=== PATIENT | female | born 1950 | race African-American/Black ===

== ENCOUNTER → 2017-06-07 | Outpatient (CLI) | payer MEDICARE ==
[~2017-06-07] MED LIST: ADVAIR 2501 DISK W/D PO; AMOXICILLIN PO; LASIX PO; LORTAB 10/500 T1 TAB PO; NEXIUM PO; SINGULAIR PO
--- NOTE | ~2017-06-07 | MY29 ---
[facility] A Service of [facility] RADIOLOGY TEXT RESULTS PATIENT: JUANA ESQUEDA LOCATION: [facility] : 48 UNIT #: [id number] AGE: [address]: Gayle Appiah MD SEX: F ORDER DR: [id number] [facility] [address] [place], [place] [address] [id number] O MR#: [id number] Acc #: [id number] NAME: JUANA ESQUEDA : 1950 SEX: F STUDY DATE/TIME: 06/07/2017 15:15 UNIT: [facility] ROOM: STUDY DESCRIPTION: [facility] SCREENING W/ CAD BILAT Attending Physician: Gayle Appiah M.D. Referring Physician: Gayle Appiah M.D. Ordering Physician: Gayle Appiah M.D. Primary Care Physician: Gayle Appiah M.D. MEDICAL IMAGING REPORT This report is preliminary unless electronic signature is present EXAM Bilateral digital screening mammogram with CAD 06/07/2017 INDICATION 66-year-old female for routine screening. No reported problems. No personal or family history of breast cancer. Breast reduction in 2005. TECHNIQUE CC, MLO and exaggerated CC lateral views of the left breast were obtained and reviewed with an FDA-approved CAD device. Standard screening views obtained on the right and also reviewed with an FDA-approved CAD device. COMPARISON 03/17/2016, 01/05/2015, 12/17/2013. FINDINGS Breast parenchyma is composed of scattered fibroglandular densities and unchanged. There is motion degradation on both images of the right breast. Technical repeat CC and MLO views recommended. There is otherwise no new dominant nodule, mass or suspicious clustered microcalcifications. Benign appearing calcifications are present bilaterally. Benign intramammary nodes on the left stable. IMPRESSION Motion degradation on the right. Repeat imaging of the right breast recommended in both projections. There is otherwise no new dominant nodule, mass or suspicious cluster of microcalcifications. Patients over the age of 40 are entered into a reminder system with target due date for the next mammogram. A result letter will also be sent to the patient. BIRADS 0 Incomplete: Need additional imaging evaluation and/or prior STS. [facility] A Service of [facility] RADIOLOGY TEXT RESULTS PATIENT: JUANA ESQUEDA LOCATION: [facility] : 48 UNIT #: [id number] AGE: [address]: Gayle Appiah MD SEX: F ORDER DR: mammograms for comparison Dictated by... Vlad Santoyo M.D. THIS IS AN ELECTRONICALLY VERIFIED REPORT Vlad Santoyo M.D. at 06/08/2017 6:06 PM JUAN/court TD: 06/08/2017 14:02 JOB #: [id number] MEDICAL IMAGING REPORT Page 1 of 1 COPY
== END | disposition home or self-care (01) ==
LOC: CWCC 14:30
DX: Z12.31 Encounter for screening mammogram for malignant neoplasm of breast (principal)
CPT/HCPCS: G0202